=== PATIENT | female | born 1990 | race Caucasian/White ===

== ENCOUNTER 2017-06-03 07:58 | Emergency (ER) | payer OTHER ==
[2017-06-03 09:09] LABS: APPEARANCE,URINE CLEAR; BILIRUBIN,URINE NEGATIVE (NEGATIVE); CALCIUM OXALATE CRYSTALS,URINE RARE /HPF; GLUCOSE, URINE NEGATIVE (NEGATIVE); KETONES,URINE NEGATIVE (NEGATIVE); LEUKOCYTE ESTERASE,URINE NEGATIVE (NEGATIVE); NITRITE,URINE NEGATIVE (NEGATIVE); PROTEIN,URINE NEGATIVE (NEGATIVE); URINE SPECIFIC GRAVITY 1.001; UROBILINOGEN,URINE NEGATIVE mg/dL (<2.0)
[2017-06-03 09:17] LABS: ABSOLUTE EOSINOPHILS # (AUTO) 0.2 10^3/uL (0.0-0.6); ABSOLUTE MONOCYTES (AUTO) 0.6 10^3/uL (0.1-1.4); ABSOLUTE NEUT (AUTO) 4.9 10^3/uL (1.7-8.2); BASOPHILS % (AUTO) 0.4 % (0-2); EOSINOPHILS % (AUTO) 2.2 % (0-6); HEMATOCRIT 41.8 % (36.0-47.0); HGB HCT DIFFERENCE 0.2; LYMPHOCYTES % (AUTO) 40.9 % (13-45); MEAN CORPUSCULAR HEMOGLOBIN 32.6 pg (27.0-33.4); MEAN CORPUSCULAR HGB CONC 33.6 g/dL (32.0-36.0); MEAN CORPUSCULAR VOLUME 97 fl (80-97); RED CELL DISTRIBUTION WIDTH 13.7 % (11.5-14.0); SEGMENTED NEUTROPHILS % (AUTO) 50.5 % (42-78); WHITE BLOOD COUNT 9.7 10^3/uL (4.0-10.5)
[2017-06-03 09:29] LABS: ALANINE AMINOTRANSFERASE 24 U/L (9-52); ALBUMIN 4.6 g/dL (3.5-5.0); ALKALINE PHOSPHATASE 51 U/L (38-126); ANION GAP 12 (5-19); ASPARTATE AMINO TRANSFERASE 10 U/L (14-36); BILIRUBIN,DIRECT 0.3 mg/dL (0.0-0.4); BILIRUBIN,TOTAL 0.3 mg/dL (0.2-1.3); BLOOD UREA NITROGEN 6 mg/dL (7-20); CALCIUM 9.9 mg/dL (8.4-10.2); CARBON DIOXIDE 24 mmol/L (22-30); CHLORIDE 107 mmol/L (98-107); CREATININE RESULT 0.71 mg/dL (0.52-1.25); GLUCOSE 63 mg/dL (75-110); LIPASE 124.2 U/L (23-300); POTASSIUM 4.6 mmol/L (3.6-5.0); TOTAL PROTEIN 7.6 g/dL (6.3-8.2)
--- NOTE | 2017-06-03 11:03 | RADIOLOGY REPORT (SQ) ---
EXAM DESCRIPTION: U/S OB TRANSVAG W/DOPPLER COMPLETED DATE/TIME: 06/03/2017 9:39 am REASON FOR STUDY: +preg bleedin COMPARISON: CT abdomen pelvis 12/20/2015, 05/15/2014 TECHNIQUE: Transvaginal static and realtime grayscale images acquired of the pelvis. Additional siddharth cted spectral and color Doppler images recorded. All images stored on PACs. BHCG: Quantitative HCG negative LIMITATIONS: None. FINDINGS: UTERUS: No visualized intrauterine . Uterus is 6.3 x 4.6 x 3.4 cm in size. RIGHT ADNEXA: Normal ovary with normal vascular flow. Right ovary 4 x 2.7 x 2.1 cm in size. No adnexal free fluid. No adnexal masses. LEFT ADNEXA: Normal ovary with normal vascular flow. Left ovary 1.9 x 1.8 x 1.7 cm in size. No adnexal free fluid. No adnexal masses. FREE FLUID: None. OTHER: No other significant finding. IMPRESSION: NO VISUALIZED INTRA- OR EXTRAUTERINE . bHCG LEVEL negative No other significant finding on today's endovaginal pelvic ultrasound TECHNICAL DOCUMENTATION: JOB ID: [id number] [employer]- All Rights Reserved
[2017-06-03] MEDS ORDERED: DICYCLOMINE HCL 20 MG TABLET PO ONE (11:29)
--- NOTE | 2017-06-03 11:34 | ER Document Report ---
ED General - General Chief Complaint: Vaginal Bleeding Stated Complaint: VAGINAL BLEEDING Time Seen by Provider: 06/03/17 08:23 TRAVEL OUTSIDE OF THE [place] IN LAST 30 DAYS: No - HPI Patient complains to provider of: Positive vaginal bleeding Notes: Patient coming in for evaluation of vaginal bleeding . Patient is a with 2 miscarriages in the past. Patient states she is approximately 9 weeks . Patient became after her sexual partners condom broke. Patient denies any fever chills nausea vomiting. Patient states passing large clots this morning. - Related Data Allergies/Adverse Reactions: tramadol [Tramadol] Allergy (Intermediate, Verified 06/03/17 08:01) Past Medical History - Social History Smoking Status: Current Some Day Smoker Frequency of alcohol use: None Drug Abuse: None Family History: Reviewed & Not Pertinent Patient has suicidal ideation: No Patient has homicidal ideation: No Renal/ Medical History: Reports: Hx Ovarian Cysts. Denies: Hx Peritoneal Dialysis Psychiatric Medical History: Reports: Hx Post Traumatic Stress Disorder Past Surgical History: Reports: Hx Orthopedic Surgery - LEFT KNEE SURGERY X 3 - Immunizations Hx Diphtheria, Pertussis, Tetanus Vaccination: Yes Review of Systems - Review of Systems Constitutional: No symptoms reported EENT: No symptoms reported Cardiovascular: No symptoms reported Respiratory: No symptoms reported Gastrointestinal: No symptoms reported Genitourinary: No symptoms reported Female Genitourinary: Vaginal bleeding Musculoskeletal: No symptoms reported Skin: No symptoms reported Hematologic/Lymphatic: No symptoms reported Neurological/Psychological: No symptoms reported -: Yes All other systems reviewed and negative Physical Exam - Vital signs Vitals: Temp Pulse Resp BP Pulse Ox 98.2 F 104 H 17 121/89 H 98 06/03/17 08:01 06/03/17 08:01 06/03/17 08:01 06/03/17 08:01 06/03/17 08:01 Interpretation: Normal - General General appearance: Appears well, Alert - HEENT Head: Normocephalic, Atraumatic Eyes: Normal Pupils: PERRL - Respiratory Respiratory status: No respiratory distress Chest status: Nontender Breath sounds: Normal Chest palpation: Normal - Cardiovascular Rhythm: Regular Heart sounds: Normal auscultation Murmur: No - Abdominal Inspection: Normal Distension: No distension Bowel sounds: Normal Tenderness: Nontender Organomegaly: No organomegaly - Back Back: Normal, Nontender - Extremities General upper extremity: Normal inspection, Nontender, Normal color, Normal ROM , Normal temperature General lower extremity: Normal inspection, Nontender, Normal color, Normal ROM , Normal temperature, Normal weight bearing. No: Zuly's sign - Neurological Neuro grossly intact: Yes Cognition: Normal Orientation: AAOx4 [place] Coma Scale Eye Opening: Spontaneous [place] Coma Scale Verbal: Oriented [place] Coma Scale Motor: Obeys Commands [place] Coma Scale Total: 15 Speech: Normal Motor strength normal: LUE, RUE, LLE, RLE Sensory: Normal - Psychological Associated symptoms: Normal affect, Normal mood - Skin Skin Temperature: Warm Skin Moisture: Dry Skin Color: Normal Course - Re-evaluation Re-evalutation: 06/03/17 15:16 Beta-hCG is negative. Ultrasound also confirms no signs of intrauterine . Patient more likely miscarriage. This was discussed with patient stated understanding. Patient encouraged follow-up with her [facility]IST. Patient will be discharged home. - Vital Signs Vital signs: Temp Pulse Resp BP Pulse Ox 98.2 F 104 H 17 121/89 H 98 06/03/17 08:01 06/03/17 08:01 06/03/17 08:01 06/03/17 08:01 06/03/17 08:01 - Laboratory Result Diagrams: 06/03/17 09:00 06/03/17 09:00 Laboratory results interpreted by me: 06/03/17 06/03/17 08:45 09:00 BUN 6 L Glucose 63 L AST 10 L Urine Blood LARGE H Discharge - Discharge Clinical Impression: Vaginal bleeding Condition: Good Disposition: HOME, SELF-CARE Instructions: Vaginal Bleeding ([facility]), Miscarriage ([facility]) Additional Instructions: Please follow-up with your primary care physician for further evaluation. You may take the Bentyl prescribed for your cramps also take Tylenol Motrin. Please follow-up with your [facility]NING SPECIALIST as needed. Prescriptions: Dicyclomine HCl [Bentyl 20 mg Tablet] 20 mg PO QID #20 tablet Forms: Return to Work
[2017-06-03 11:45] VITALS: BP 120/82
== END 2017-06-03 11:43 | disposition home or self-care (01) ==
LOC: ER 07:58
DX: N93.8 Other specified abnormal uterine and vaginal bleeding (principal); F17.200 Nicotine dependence, unspecified, uncomplicated
CPT/HCPCS: 99284; 86900; 86901; 36415; 84702; 83690; 85025; 80053; 81001; 76817; 93976; J3490

== ENCOUNTER 2020-10-27 17:54 | Emergency (ER) | payer OTHER ==
[2020-10-27 18:02] VITALS: BP 104/75
--- NOTE | 2020-10-27 18:42 | ER Document Report ---
ED Extremity Problem, Upper - General Chief Complaint: Shoulder Pain Stated Complaint: LEFT SHOULDER PAIN,SWELLING Time Seen by Provider: 10/27/20 18:29 Primary Care Provider: [facility] [Provider [facility]] - Follow up as needed [facility] [Provider Group] - [facility] - Follow up as needed Mode of Arrival: Ambulatory Information source: Patient Notes: 29-year-old female presents to ED for complaint of severe pain to the left scapular and shoulder area. 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 She states she did this about 11:00 yesterday morning. She states she thought she could take her muscle relaxers and her medication she has at home and she would be okay but the pain has continued. She states she took tramadol 50 mg about 430 she took ibuprofen about 4:00 she took 2 Tylenol around 2:00 she took muscle relaxers 4 times since 11 AM yesterday and the last dose was 11 AM today. She states she is not allergic to tramadol she is allergic to Toradol. She does have tenderness to palpation to the scapular area. She states it is very painful to move the left shoulder. Constitutional: Negative for fever. HENT: Negative for sore throat. Eyes: Negative for visual changes. Cardiovascular: Negative for chest pain. Respiratory: Negative for shortness of breath. Gastrointestinal: Negative for abdominal pain, vomiting or diarrhea. Genitourinary: Negative for dysuria. Musculoskeletal: Complains of pain to the left scapular area and left shoulder. Pain with range of motion to the left shoulder Skin: Negative for rash. Neurological: Negative for headaches, weakness or numbness. 10 point ROS negative except as marked above and in HPI. PHYSICAL EXAMINATION: GENERAL: Well-appearing, well-nourished and in no acute distress. HEAD: Atraumatic, normocephalic. EYES: Pupils equal round extraocular movements intact, conjunctiva are normal. ENT: Nares patent NECK: Normal range of motion LUNGS: No respiratory distress Musculoskeletal: Decreased range of motion to the left shoulder due to pain. Tenderness to palpation to the left scapular area no numbness to the front of the shoulder. No tenderness to the humerus area or the forearm or elbow. Patient is able to move the shoulder but with pain. NEUROLOGICAL: Normal speech, normal gait. PSYCH: Normal mood, normal affect. SKIN: Warm, Dry, normal turgor, no rashes or lesions noted. TRAVEL OUTSIDE OF THE [place] IN LAST 30 DAYS: No - HPI Patient complains to provider of: Shoulder - Left shoulder and scapula Onset: Yesterday Recent injury: Possibly Where: Work Quality of pain: Sharp, Throbbing Pain Level: 4 Context: Other - Working on a car when moving heavy pieces Associated symptoms: None Exacerbated by: Movement, Exertion Relieved by: Rest, Positioning Similar symptoms previously: Yes Recently seen / treated by doctor: No - Related Data Allergies/Adverse Reactions: No Known Allergies Allergy (Verified 10/27/20 20:21) Past Medical History - General Information source: Patient - Social History Smoking Status: Current Every Day Smoker Cigarette use (# per day): Yes - ppd Smoking Education Provided: Yes - 3 min Frequency of alcohol use: None Drug Abuse: None 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 Lives with: Family Family History: Reviewed & Not Pertinent Patient has suicidal ideation: No Patient has homicidal ideation: No - Past Medical History Cardiac Medical History: Reports: None Pulmonary Medical History: Reports: Hx Bronchitis EENT Medical History: Reports: None Neurological Medical History: Reports: None Endocrine Medical History: Reports: None Renal/ Medical History: Reports: Hx Ovarian Cysts Malignancy Medical History: Reports: Other - States being tested for CLL GI Medical History: Reports: Hx Gastritis, Hx Gastroesophageal Reflux Disease, Hx Ulcer, Hx Endoscopy Musculoskeletal Medical History: Reports Hx Musculoskeletal Deformity, Reports Hx Musculoskeletal Trauma Skin Medical History: Reports None Psychiatric Medical History: Reports: Hx Post Traumatic Stress Disorder Traumatic Medical History: Reports: Hx Fractures - Finger hand right knee Past Surgical History: Reports: Hx Cholecystectomy, Hx Orthopedic Surgery - Right KNEE SURGERY X4, index finger right, - Immunizations Hx Diphtheria, Pertussis, Tetanus Vaccination: Yes Physical Exam - Vital signs Vitals: Temp Pulse Resp BP Pulse Ox 98.6 F 96 16 104/75 98 10/27/20 18:00 10/27/20 18:00 10/27/20 18:00 10/27/20 18:00 10/27/20 18:00 Course - Re-evaluation Re-evalutation: 10/27/20 20:05 Chest x-rays with patient and written report of x-rays given to patient. The x- ray did not show any acute injuries. Patient states that the sling actually caused more pain is to help her with her pain. I will give her a [place] dispense pack as this is the weekend and she cannot get into see her primary care doctor then [facility]. - Vital Signs Vital signs: Temp Pulse Resp BP Pulse Ox 98.6 F 96 16 104/75 98 10/27/20 18:00 10/27/20 18:00 10/27/20 18:00 10/27/20 18:00 10/27/20 18:00 - Diagnostic Test Radiology reviewed: Image reviewed, Reports reviewed Procedures - Immobilization Left Shoulder Time completed: 19:05 Pre-Proc Neuro Vasc Exam: Normal Immobilizer type: Sling, Other - Patient states the sling does not help the pain but actually makes it worse. I have adjusted the sling but she states it still makes it worse I have sent her home with her in case at some point it does help with her pain Performed by: BARBI Post-Proc Neuro Vasc Exam: Normal Alignment checked and good: Yes Discharge - Discharge Clinical Impression: Left shoulder pain Qualifiers: Chronicity: acute Qualified Code(s): M25.512 - Pain in left shoulder Condition: Stable Disposition: HOME, SELF-CARE Additional Instructions: Shoulder Injury You have injured your shoulder. This usually results from stretching or tearing of the tendons during trauma. Time and protection are required in order to heal properly. Many injuries are quite disabling, and should be taken seriously. Initial treatment includes cold packs and a sling to rest the shoulder. The physician has assessed the seriousness of your injury, and has outlined a treatment plan. Understand that this treatment may change, depending on how you progress. If a re-examination was recommended, it is important that you follow up as instructed. Some shoulder injuries (such as partial tear of the rotator cuff) are only suspected after you've failed to improve. Call us if there's severe pain, numbness, or loss of function. You have been given a sling which you states this does not help your pain. Continue to try off and on to use the sling if it helps you wear it as I have demonstrated if it does not then do not bother wearing it. Exercise Program for the Shoulder Since the shoulder moves in so many directions, the joint attachment is weak. Muscles provide most of the stability to the shoulder. You must exercise your shoulder to prevent painful instability or stiffening. PASSIVE - These may be begun within a few days of the injury. While standing, lean forward, allowing the arm to hang down towards the floor. Move the arm in small circles while slowly twisting your chest towards and away from the hanging arm. Do this for one minute. ACTIVE - These may be performed when the doctor gives permission. Begin with the arms at the sides. Raise the arms forward (shoulder's width apart) until they reach shoulder level. Then slowly swing both arms back until they are aiming straight out away from each other. Then bring them forward again, and finally, lower them to your sides. Repeat 20 to 30 times. As you improve, put weights in your hands for the exercise. Start with one pound, and work up to 10 pounds. Never use more than is comfortable. Athletes may work up to 30 pounds. Acetaminophen Acetaminophen may be taken for pain relief or fever control. It's much safer than aspirin, offering a wider range of "safe" dosages. It is safe during . Some brand names are Tylenol, Panadol, Datril, Anacin 3, Tempra, and Liquiprin. Acetaminophen can be repeated every four hours. The following are maximum recommended dosages: WEIGHT Dose Drops Elixir Chewable(80mg) (LBS.) drprs=droppers tsp=teaspoon 6 40 mg .4 ml (1/2) 6-11 80 mg .8 ml (full) 1/2 tsp 1 tab 12-16 120 mg 1 1/2 drprs 3/4 tsp 1 1/2 tabs 17-23 160 mg 2 drprs 1 tsp 2 tabs 24-30 240 mg 3 drprs 1 1/2 tsp 3 tabs 30-35 320 mg 2 tsp 4 tabs 36-41 360 mg 2 1/4 tsp 4 1/2 tabs 42-47 400 mg 2 1/2 tsp 5 tabs 48-53 480 mg 3 tsp 6 tabs 54-59 520 mg 3 1/4 tsp 6 1/2 tabs 60-64 560 mg 3 1/2 tsp 7 tabs 65-70 600 mg 3 3/4 tsp 7 1/2 tabs 71-76 640 mg 4 tsp 8 tabs 77-82 720 mg 4 1/2 tsp 9 tabs 83-88 800 mg 5 tsp 10 tabs >89 pounds or adults 650 mg to 900 mg Acetaminophen can be repeated every four hours. Maximum daily dose not to exceed 4000 mg. These maximum recommended dosages are slightly higher than the dosages written on the product container, but these dosages are very safe and well below the toxic dosage for acetaminophen. Oral Narcotic Medication You have been given a [place] dispense pack for pain control. Do not take any tramadol if you have taking a [place] within 8 hours and do not take a [place] within 8 hours after taking her tramadol. This medication is a narcotic. It's best taken with food, as nausea can result if taken on an empty stomach. Don't operate machinery or drive within six hours of taking this medication. Do not combine this medicine with alcohol, or with any medication which can cause sedation (such as cold tablets or sleeping pills) unless you get permission from the physician. Narcotics tend to cause constipation. If possible, drink plenty of fluids and eat a diet high in fiber and fruits. Ibuprofen Ibuprofen is an excellent, safe drug for pain control. In addition, it has potent antiinflammatory effects which are beneficial, especially in the treatment of injuries, arthritis, or tendonitis. It's best to take ibuprofen with food. Persons with ulcer disease or allergy to aspirin should notify their physician of this before taking ibuprofen. Take the medication exactly as prescribed. Don't take additional doses unless instructed to do so by your doctor. If you develop wheezing, shortness of breath, hives, faintness, stomach pain, vomiting, or dark black stools, return for re-evaluation at once. Ice Packs Apply ice packs frequently against the painful area. Many different schedules are recommended, such as "20 minutes on, 20 minutes off" or "one hour ice, two hours rest." If you need to work, you may need to go longer between ice treatments. You should plan to have the area ice packed AT LEAST one fourth of the time. The ice should be applied over the wrap, tape, or splint, or over a layer of cloth -- not directly against the skin. Some ice bags have a built-in cloth and can be put directly on the skin. Warm Packs After approximately two days, apply gentle heat (such as a heating pad or hot water bottle) for about 20 to 30 minutes about every two hours -- at least four times daily. Warmth and elevation will help you make a more rapid recovery, and will ease the pain considerably. Do not use HOT heat, and never apply heat for longer than 30 minutes. The continuous heat can invisibly damage skin and muscles -- even when no burn is seen on the surface. Damaged muscles can make you MORE sore. FOLLOW-UP CARE: If you have been referred to a physician for follow-up care, call the physicians office for an appointment as you were instructed or within the next two days. If you experience worsening or a significant change in your symptoms, notify the physician immediately or return to the Emergency Department at any time for re-evaluation. Referrals: [facility] [[facility] - Follow up as needed [facility] [Provider Group] - Follow up as needed [facility] [Provider Group] - Follow up as needed
--- NOTE | 2020-10-27 19:11 | RADIOLOGY REPORT (SQ) ---
EXAM DESCRIPTION: SCAPULA LEFT; SHOULDER LEFT 2 OR MORE VIEWS IMAGES COMPLETED DATE/TIME: 10/27/2020 5:53 pm REASON FOR STUDY: injury; pain and injury left shoulder and scapular COMPARISON: None. NUMBER OF VIEWS: Three views. TECHNIQUE: Internal rotation, external rotation, and Y view images acquired of the left shoulder. A P and lateral views of the left scapula. LIMITATIONS: None. FINDINGS: MINERALIZATION: Normal. BONES: No acute fracture . No worrisome bone lesions. No significant osteophytes. SOFT TISSUES: No calcifications. VISUALIZED RIBS, SPINE, AND LUNG: No other significant finding. OTHER: No other significant finding. IMPRESSION: No radiographic abnormality of the left shoulder or scapula. TECHNICAL DOCUMENTATION: JOB ID: [id number] [employer]- All Rights Reserved Reading location - IP/workstation name: [email or web address]
--- NOTE | 2020-10-27 19:11 | RADIOLOGY REPORT (SQ) ---
EXAM DESCRIPTION: SCAPULA LEFT; SHOULDER LEFT 2 OR MORE VIEWS IMAGES COMPLETED DATE/TIME: 10/27/2020 5:53 pm REASON FOR STUDY: injury; pain and injury left shoulder and scapular COMPARISON: None. NUMBER OF VIEWS: Three views. TECHNIQUE: Internal rotation, external rotation, and Y view images acquired of the left shoulder. A P and lateral views of the left scapula. LIMITATIONS: None. FINDINGS: MINERALIZATION: Normal. BONES: No acute fracture . No worrisome bone lesions. No significant osteophytes. SOFT TISSUES: No calcifications. VISUALIZED RIBS, SPINE, AND LUNG: No other significant finding. OTHER: No other significant finding. IMPRESSION: No radiographic abnormality of the left shoulder or scapula. TECHNICAL DOCUMENTATION: JOB ID: [id number] 2010 [employer]- All Rights Reserved Reading location - IP/workstation name: [email or web address]
[2020-10-27] MEDS ORDERED: HYDROCODONE/ACETAMINOPHEN 5-325 MG (6 TAB/ER DISP) PO PRN (20:16)
== END 2020-10-27 20:25 | disposition home or self-care (01) ==
LOC: ER 17:54
DX: M25.512 Pain in left shoulder (principal); X50.0XXA Overexertion from strenuous movement or load, initial encounter; Y93.89 Activity, other specified; Y99.0 Civilian activity done for income or pay; F17.210 Nicotine dependence, cigarettes, uncomplicated; Z88.8 Allergy status to other drugs, medicaments and biological substances
CPT/HCPCS: 99284